=== PATIENT | male | born 1950 | race Caucasian/White ===

== ENCOUNTER 2017-05-12 22:47 | Emergency (ER) | payer OTHER ==
[~2017-05-12] VITALS: Ht 182.9 cm; Wt 91.3 kg
[2017-05-12 22:48] VITALS: BP 171/82
[2017-05-12 23:18] LABS: PATH.CAST-FLAG NOT PRESENT; SPERM-FLAG NOT PRESENT; SRC-FLAG NOT PRESENT; XTAL-FLAG NOT PRESENT; YLC-FLAG NOT PRESENT
[2017-05-12 23:36] LABS: HEMATOCRIT 45.1 % (39.2-51.8); HEMOGLOBIN 15.4 g/dL (13.7-18.0); WHITE BLOOD COUNT 10.5 x10^3/uL (3.4-10)
[2017-05-12 23:41] LABS: BLOOD UREA NITROGEN 23 mg/dL (7-18)
== END 2017-05-13 00:39 | disposition home or self-care (01) ==
LOC: ED 23:59
DX: N28.9 Disorder of kidney and ureter, unspecified (principal)
CPT/HCPCS: 36415; 51702; 80048; 81001; 82040; 85025; 99284